=== PATIENT | female | born 1960 | race Native Hawaiian/Other Pacific Islander ===

== ENCOUNTER 2016-11-15 14:43 | Outpatient (CLI) | payer OTHER ==
[~2016-11-15 14:43] MED LIST: CARV6.25 PO; DEXA4TAB2 PO; FLUOXETINE20 M1 PO; HYDRALAZINE25 MG PO; LOSA50TA PO; TRAM50TA PO
[2016-11-15 15:21] LABS: POTASSIUM 4.5 mmol/L (3.6-5.2)
[2016-11-15 15:25] LABS: PLATELET COUNT 200 K/uL (152-353)
== END 2016-11-15 23:49 | disposition home or self-care (01) ==
LOC: LABW 14:43
PROVIDERS: Internal Medicine Cardiovascular Disease
DX: E78.4 Other hyperlipidemia (principal); Z79.899 Other long term (current) drug therapy; Z51.81 Encounter for therapeutic drug level monitoring
CPT/HCPCS: 36415; 80048; 80061; 80076; 85027

== ENCOUNTER 2016-12-08 11:11 | Outpatient (CLI) | payer OTHER ==
[2016-12-08 11:53] LABS: PLATELET COUNT 153 K/uL (152-353)
[2016-12-08 12:19] LABS: POTASSIUM 4.3 mmol/L (3.6-5.2)
== END 2016-12-08 19:30 | disposition home or self-care (01) ==
LOC: LABW 11:11
PROVIDERS: Nurse Practitioner
DX: D64.9 Anemia, unspecified (principal); N28.9 Disorder of kidney and ureter, unspecified; M10.9 Gout, unspecified
CPT/HCPCS: 36415; 80053; 82728; 83540; 84550; 85027

== ENCOUNTER 2017-05-04 08:57 | Outpatient (CLI) | payer OTHER | END 2017-05-04 19:08 | disposition home or self-care (01) | LOC: RAD 08:57 | DX: R05 Cough (principal) ==

== ENCOUNTER 2017-06-04 15:17 | Emergency (ER) | payer OTHER ==
[~2017-06-04] VITALS: Ht 162.6 cm; Wt 83.5 kg
[2017-06-04 15:52] LABS: PLATELET COUNT 236 K/uL (152-353)
[2017-06-04 16:43] VITALS: BP 128/78; TEMP 98.2
== END 2017-06-04 16:49 | disposition home or self-care (01) ==
LOC: ED 15:17
DX: R07.89 Other chest pain (principal); K29.60 Other gastritis without bleeding; B96.81 Helicobacter pylori [H. pylori] as the cause of diseases classified elsewhere; J18.9 Pneumonia, unspecified organism
CPT/HCPCS: 80053; 82550; 84484; 85027; 86318; 93005; 99284

== ENCOUNTER 2017-07-31 17:51 | Inpatient (IN) | payer OTHER ==
[~2017-07-31] VITALS: Ht 162.6 cm; Wt 83.1 kg
[2017-07-31 18:02] VITALS: BP 148/68; TEMP 98.5
[2017-07-31 18:36] LABS: PLATELET COUNT 307 K/uL (152-353)
[2017-07-31 19:10] VITALS: BP 146/62
[2017-07-31 19:12] LABS: PARTIAL THROMBOPLASTIN TIME 22.6 SECONDS (24.5-33.6)
[2017-07-31 20:13] VITALS: BP 190/80
[2017-07-31 22:49] VITALS: BP 141/67; TEMP 98.8; Ht 162.6 cm; Wt 83.1 kg
[2017-08-01] VITALS: BP 148/60; TEMP 98.4
[2017-08-01] MEDS ORDERED: TRAZ100T PO (01:16)
[2017-08-01] MEDS ORDERED: ALPR0.5T24 PO (01:17)
[2017-08-01] MEDS ORDERED: CLOP75TA2 PO (01:18)
[2017-08-01] MEDS ORDERED: ALLO300T23 PO (01:18)
[2017-08-01] MEDS ORDERED: COLC0.6T6 PO (01:19)
[2017-08-01] MEDS ORDERED: GABA300C2 PO (01:20)
[2017-08-01] MEDS ORDERED: AMLO2.5T PO (01:20)
[2017-08-01] MEDS ORDERED: CYCL10TA35 PO (01:21)
[2017-08-01] MEDS ORDERED: ESCI10TA PO (01:22)
[2017-08-01] MEDS ORDERED: LOSA50TA PO (01:22)
[2017-08-01] MEDS ORDERED: HYDR25TA60 PO (01:23)
[2017-08-01] MEDS ORDERED: TRAVATAN Z0.004 % OP (01:24)
[2017-08-01] MEDS ORDERED: ASPI325T40 PO (01:25)
[2017-08-01 04:00] VITALS: BP 127/46; TEMP 98.1
[2017-08-01 08:00] VITALS: BP 178/85; TEMP 98.8
[2017-08-01 12:00] VITALS: BP 157/60; TEMP 98
[2017-08-01 16:00] VITALS: BP 152/56; TEMP 98.3
[2017-08-01 20:00] VITALS: BP 183/56; TEMP 98.3
[2017-08-02] VITALS: BP 175/70; TEMP 98.3
[2017-08-02 04:00] VITALS: BP 159/75; TEMP 98.6
[2017-08-02 08:00] VITALS: BP 150/57; TEMP 98.7
[2017-08-02 11:57] VITALS: BP 170/53; TEMP 98.4
[2017-08-02 16:00] VITALS: BP 132/78; TEMP 98.5
[2017-08-02 20:00] VITALS: BP 183/75; TEMP 98.6
[2017-08-03] VITALS: BP 190/75; TEMP 98.3
[2017-08-03 04:00] VITALS: BP 114/49; TEMP 98.2
[2017-08-03 05:38] LABS: PLATELET COUNT 231 K/uL (152-353)
[2017-08-03 05:44] LABS: POTASSIUM 4.1 mmol/L (3.6-5.2)
[2017-08-03 08:00] VITALS: BP 148/77; TEMP 99.1
[2017-08-03 12:00] VITALS: BP 132/55; TEMP 98.3
[2017-08-03 16:00] VITALS: BP 169/57; TEMP 98.1
== END 2017-08-03 19:11 | disposition home or self-care (01) | DRG 190 ==
LOC: ED 17:51 → MED/SURG 19:35
PROVIDERS: Internal Medicine
PROC: 30233N1 Transfusion of Nonautologous Red Blood Cells into Peripheral Vein, Percutaneous Approach (ICD-10-PCS; principal; 2017-08-01)
DX: J44.0 Chronic obstructive pulmonary disease with (acute) lower respiratory infection (principal); J18.8 Other pneumonia, unspecified organism; D64.89 Other specified anemias; I25.10 Atherosclerotic heart disease of native coronary artery without angina pectoris; I73.89 Other specified peripheral vascular diseases
CPT/HCPCS: 36415; 80048; 80053; 81000; 82550; 82607; 82948; 83540; 83550; 83880; 84466; 84484; 85014; 85018; 85027; 85044; 85610; 85730; 86318; 86850; 86900; 86901; 86922; 93005; 94640; 94664; 94760; 96374; 99284; J1650; J1885; J1940; J1956; J2270; J2405; J3490; P9016

== ENCOUNTER 2017-08-27 11:05 | Day surgery (SDC) | payer OTHER ==
[~2017-08-27 11:05] MED LIST changes: +ALLO300T23 PO; +ALPR0.5T24 PO; +AMLO2.5T PO; +ASPI325T40 PO; +CLOP75TA2 PO; +COLC0.6T6 PO; +CYCL10TA35 PO; +ESCI10TA PO; +GABA300C2 PO; +HYDR25TA60 PO; +TRAVATAN Z0.004 % OP; +TRAZ100T PO
== END 2017-08-27 14:05 | disposition home or self-care (01) ==
LOC: OR 11:05
PROC: 08RJ3JZ Replacement of Right Lens with Synthetic Substitute, Percutaneous Approach (ICD-10-PCS; principal; 2017-08-27)
DX: H25.811 Combined forms of age-related cataract, right eye (principal)
CPT/HCPCS: 66984; J2250; V2632

== ENCOUNTER 2017-09-03 13:53 | Outpatient (CLI) | payer OTHER | END 2017-09-03 14:55 | disposition home or self-care (01) | LOC: MRI 13:53 | DX: R41.82 Altered mental status, unspecified (principal) ==

== ENCOUNTER 2017-09-03 18:40 | Emergency (ER) | payer OTHER ==
[~2017-09-03] VITALS: Ht 162.6 cm; Wt 83.5 kg
[2017-09-03 18:45] VITALS: TEMP 97.6
[2017-09-03 19:17] LABS: PLATELET COUNT 203 K/uL (152-353)
[2017-09-03 19:49] VITALS: BP 136/69
== END 2017-09-03 19:49 | disposition home or self-care (01) ==
LOC: ED 18:40
DX: J20.9 Acute bronchitis, unspecified (principal); R04.0 Epistaxis
CPT/HCPCS: 36415; 80053; 85027; 85610; 85730; 96372; 99283; J1885

== ENCOUNTER 2017-09-24 09:59 | Day surgery (SDC) | payer OTHER | END 2017-09-24 12:15 | disposition home or self-care (01) | LOC: OR 09:59 | PROC: 08RK3JZ Replacement of Left Lens with Synthetic Substitute, Percutaneous Approach (ICD-10-PCS; principal; 2017-09-24) | DX: H25.812 Combined forms of age-related cataract, left eye (principal) | CPT/HCPCS: 66984; J2250; V2632 ==

== ENCOUNTER 2017-10-11 09:21 | Outpatient (CLI) | payer OTHER | END 2017-10-11 19:40 | disposition home or self-care (01) | LOC: RAD 09:21 | DX: J44.1 Chronic obstructive pulmonary disease with (acute) exacerbation (principal); M25.512 Pain in left shoulder ==

== ENCOUNTER 2017-10-12 09:19 | Outpatient (CLI) | payer OTHER ==
[2017-10-12 09:40] LABS: PLATELET COUNT 238 K/uL (152-353)
== END 2017-10-12 11:00 | disposition home or self-care (01) ==
LOC: LABW 09:19
PROVIDERS: Nurse Practitioner
DX: D64.9 Anemia, unspecified (principal)
CPT/HCPCS: 36415; 82728; 83540; 85027

== ENCOUNTER 2017-10-13 16:37 | Emergency (ER) | payer OTHER ==
[~2017-10-13] VITALS: Ht 162.6 cm; Wt 78.5 kg
[2017-10-13 17:23] LABS: PLATELET COUNT 244 K/uL (152-353)
[2017-10-13 18:35] VITALS: BP 141/60; TEMP 98.5
== END 2017-10-13 18:37 | disposition home or self-care (01) ==
LOC: ED 16:37
DX: R53.1 Weakness (principal); D64.89 Other specified anemias; D72.828 Other elevated white blood cell count; I50.9 Heart failure, unspecified
CPT/HCPCS: 36415; 80053; 81000; 83880; 85027; 93005; 99283

== ENCOUNTER 2017-10-16 13:09 | Outpatient (CLI) | payer OTHER | END 2017-10-16 13:14 | disposition short-term general hospital (02) | LOC: AMB 13:09 | DX: R07.89 Other chest pain (principal); R06.02 Shortness of breath | CPT/HCPCS: A0425; A0427 ==

== ENCOUNTER 2017-10-16 13:18 | Observation (INO) | payer OTHER ==
[~2017-10-16] VITALS: Ht 162.6 cm; Wt 75.4 kg
[2017-10-16 13:31] VITALS: BP 138/68; TEMP 98.6
[2017-10-16 13:46] LABS: PLATELET COUNT 254 K/uL (152-353)
[2017-10-16 13:52] LABS: POTASSIUM 2.8 mmol/L (3.6-5.2)
[2017-10-16 14:57] LABS: PARTIAL THROMBOPLASTIN TIME 21.6 SECONDS (24.5-33.6)
[2017-10-16 18:25] VITALS: BP 125/57; TEMP 98.2; Ht 162.6 cm; Wt 75.4 kg
[2017-10-16 20:00] VITALS: BP 120/75; TEMP 98.6
[2017-10-17] VITALS: BP 124/78; TEMP 98.4
[2017-10-17 04:00] VITALS: BP 117/57; TEMP 98.3
[2017-10-17 08:00] VITALS: BP 149/76; TEMP 98
== END 2017-10-17 12:00 | disposition home or self-care (01) ==
LOC: ED 13:18 → MED/SURG 17:20
DX: R07.89 Other chest pain (principal); I25.10 Atherosclerotic heart disease of native coronary artery without angina pectoris; I87.8 Other specified disorders of veins; I70.1 Atherosclerosis of renal artery; J44.9 Chronic obstructive pulmonary disease, unspecified; K21.9 Gastro-esophageal reflux disease without esophagitis; F32.89 Other specified depressive episodes; R06.02 Shortness of breath
CPT/HCPCS: 36415; 36600; 80053; 80307; 81000; 82550; 82553; 82805; 83880; 84484; 85027; 85610; 85730; 93005; 94664; 94760; 96374; 99220; 99284; G0378; G0479; J1650; J2405

== ENCOUNTER 2017-10-31 11:45 | Outpatient (CLI) | payer OTHER ==
[~2017-10-31] VITALS: Ht 162.6 cm; Wt 75.3 kg
[2017-10-31 12:10] VITALS: BP 114/65; TEMP 98.5
[2017-10-31 12:48] VITALS: BP 132/62
[2017-10-31 12:49] LABS: POTASSIUM 3.4 mmol/L (3.6-5.2)
== END 2017-10-31 12:25 | disposition home or self-care (01) ==
LOC: INF 11:45
PROVIDERS: Emergency Medicine
DX: Z79.899 Other long term (current) drug therapy (principal); I50.9 Heart failure, unspecified
CPT/HCPCS: 80048; 96374; J1940

== ENCOUNTER → 2017-11-12 12:35 | Outpatient (CLI) | payer OTHER | END | disposition home or self-care (01) | LOC: AMB 12:35 | DX: Z04.8 Encounter for examination and observation for other specified reasons (principal) ==